=== PATIENT | female | born 1945 | race Caucasian/White ===

== ENCOUNTER 2016-09-12 19:42 | Emergency (ER) | payer MEDICARE ==
[2016-09-12] MEDS ORDERED: TORAdol 30 mg Injection IM ONE (20:27)
--- NOTE | 2016-09-12 20:34 | ERPHSYRPT ---
- History of Present Illness Time Seen by Provider: 09/12/16 20:15 Source: patient Exam Limitations: clinical condition Patient Subjective Stated Complaint: Pt sts right knee pain since last night. Denies new injury. Sts rt knee is swollen and painful with weight bearing. Sts aches. Triage Nursing Assessment: Pt alert, oriented, answers all questions appropriately. Skin p/w/d, resps non-labored. Pt ambulatory with steady gait however limp noted. Swelling noted rt knee. No redness. No bruising. Physician History: PATIENT WITH HISTORY OF ASTHMA AND HYPOTHYROIDISM COMPLAINS OF RIGHT KNEE PAIN WITH SWELLING SINCE LAST NIGHT. DENIES INJURY OR TRAUMA. HAS MARKED PAIN UPON WEIGHT BEARING. Method of Injury: unknown Occurred: yesterday Quality: constant Severity of Pain-Max: moderate Severity of Pain-Current: moderate Lower Extremities Pain: knee: right Modifying Factors: Improves With: movement Associated Symptoms: unable to bear weight Allergies/Adverse Reactions: Iodine and Iodide Containing Produc Allergy (Intermediate, Verified 09/12/16 20: 05) Rash aspartame Allergy (Verified 09/12/16 20:07) Home Medications: Cetirizine HCl [Zyrtec] 10 mg PO DAILY 09/12/16 [History] Hydrochlorothiazide 12.5 mg PO DAILY 09/12/16 [History] Levothyroxine Sodium 25 Mcg [Synthroid 25 Mcg] 25 mcg PO DAILY 09/12/16 [ History] Montelukast Sodium [Singulair] 10 mg PO DAILY 09/12/16 [History] Ropinirole HCl [Requip] 0 mg PO HS 09/12/16 [History] Solifenacin Succinate [Vesicare] 5 mg PO DAILY 09/12/16 [History] Immunizations Up to Date: Yes - Review of Systems Constitutional: No Fever, No Chills Ears, Nose, & Throat: No Symptoms Respiratory: No Cough, No Dyspnea Cardiac: No Chest Pain, No Edema, No Syncope Musculoskeletal: Joint Pain, Joint Swelling - Past Medical History Pertinent Past Medical History: Yes Endocrine Medical History: Hypothyroidism Other Medical History: restless leg syndrome, allergies - Past Surgical History Past Surgical History: Yes Other Surgical History: appendectomy - Social History Smoking Status: Current every day smoker How long have you smoked: 50 Exposure to second hand smoke: No Drug Use: none Patient Lives Alone: No - Nursing Vital Signs Nursing Vital Signs: Initial Vital Signs Temperature 97.7 F Temperature Source Oral Pulse Rate 84 Respiratory Rate 16 Blood Pressure [] 143/75 Pain Intensity 8 - Physical Exam General Appearance: alert Eyes, Ears, Nose, Throat Exam: moist mucous membranes Back Exam: normal inspection, No vertebral tenderness Knees Exam: right knee: joint effusion (MEDIAL FEMORAL CONDYLE SWELLING, NO JOINT LAXITY OR CREPITUS), soft tissue tenderness, swelling Foot Exam: bilateral foot: other (BILATERAL PEDIS PULSES 2+) Neuro/Tendon Exam: normal sensation, normal motor functions Mental Status Exam: alert, oriented x 3, cooperative Skin Exam: normal color, warm, dry SpO2: 98 Oxygen Delivery: Room Air - Radiology Exams Right Knee X-ray Interpretation: Reviewed by me, Negative, No Fracture (NO DISLOCATION) Ordered Tests: Active Orders 24 hr Category Date Time Status KNEE (3 VIEWS) Stat Exams 09/12/16 20:27 Taken Medication Summary Discontinued Medications Generic Name Dose Route Start Last Admin Trade Name Freq PRN Reason Stop Dose Admin Ketorolac Tromethamine 30 mg 09/12/16 20:27 09/12/16 20:38 Toradol 30 Mg Injection IM 09/12/16 20:28 30 mg STAT ONE Administration Ketorolac Tromethamine Confirm 09/12/16 20:37 Toradol 30 Mg Injection Administered 09/12/16 20:38 Dose 30 mg .ROUTE .STK-MED ONE - Progress Progress Note: 09/12/16 20:34 PATIENT GIVEN TORADOL 30MG IM Counseled pt/family regarding: diagnosis, need for follow-up, rad results - Departure Time of Disposition: 21:10 Departure Disposition: Home Clinical Impression: RIGHT KNEE PAIN Condition: Stable Critical Care Time: No Referrals: ABILIO RUIZ [Primary Care Provider] - Instructions: Knee Pain Additional Instructions: TYLENOL #3 EVERY 4 HOURS FOR PAIN. APPLY ICE OVER KNEE SWELLING EVERY 4 HOURS, 30 MINUTES FOR 48 HOURS. AMBULATED USING WALKER ASSISTANCE WITH RIGHT FOOT FOR 1 WEEK. CONSULT YOUR FAMILY PHYSICIAN FOR EVALUATION IN 1 WEEK. Prescriptions: Codeine Phosphate/APAP #3 [Tylenol #3 Tablet] 1 tab PO Q4H PRN PRN #15 tablet PRN Reason: Pain
[2016-09-12] MEDS ORDERED: TORAdol 30 mg Injection ONE (20:37)
[2016-09-12] MEDS ORDERED: Tylenol #3 Tablet PO ONE (21:07)
[2016-09-12] MEDS ORDERED: Tylenol #3 Tablet ONE (21:09)
[2016-09-12 21:16] VITALS: BP 140/70; PULSE 81; O2SAT 96
--- NOTE | 2016-09-13 09:20 | XRAY ---
Indication: Knee pain for 2 days. No known injury. Comparison: None 3 views of the right knee intact with small nonspecific suprapatellar effusion and minimal medial joint space narrowing. No other bony, articular, or soft tissue abnormalities.
== END 2016-09-12 21:15 | disposition home or self-care (01) ==
LOC: ED 19:42
DX: M25.561 Pain in right knee (principal)
CPT/HCPCS: 73562; 99283; J1885; A9270-GY

== ENCOUNTER 2022-09-06 13:23 | Emergency (ER) | payer MEDICARE ==
--- NOTE | 2022-09-06 13:32 | ERPHSYRPT ---
- History of Present Illness Time Seen by Provider: 09/06/22 13:31 Source: patient Exam Limitations: no limitations Physician History: This is a 77-year-old overweight white female patient who was brought to the emergency department by the ambulance service whose paramedics provided us with additional independent medical information on this patient. The patient is here today because of shortness of breath and weakness. The patient was recently diagnosed with flu type that was treated with Tamiflu. She completed Tamiflu on Monday prior to this evaluation. Patient's niece insisted on the patient being evaluated in the emergency department because the patient had significantly dry mouth and has not been eating and drinking well and the niece is concerned about dehydration. Patient denies chest pain. Patient denies abdominal pain. Patient has a history of hypothyroidism, seasonal allergies, COPD, and restless leg syndrome. Patient is a daily smoker of cigarettes. Timing/Duration: day(s) (Last several days) Activities at Onset: none Severity of Dyspnea-Max: mild Severity of Dyspnea-Current: mild Possible Cause: no prior episodes Modifying Factors: Improves With: rest Associated Symptoms: weakness, No cough, No chest pain/discomfort, No chills, No calf pain Allergies/Adverse Reactions: Iodine and Iodide Containing Produc Allergy (Intermediate, Verified 09/06/22 13:34) Rash aspartame Allergy (Verified 09/06/22 13:34) Home Medications: Cetirizine HCl [Zyrtec] 10 mg PO DAILY 09/12/16 [History] Levothyroxine Sodium 25 Mcg [Synthroid 25 Mcg] 25 mcg PO DAILY 09/12/16 [History] Montelukast Sodium [Singulair] 10 mg PO DAILY 09/12/16 [History] Ropinirole HCl [Requip] 0 mg PO HS 09/12/16 [History] Solifenacin Succinate [Vesicare] 5 mg PO DAILY 09/12/16 [History] hydroCHLOROthiazide [Hydrochlorothiazide] 12.5 mg PO DAILY 09/12/16 [History] Travel Risk - International Travel Have you traveled outside of the country in past 3 weeks: No - Coronavirus Screening Are you exhibiting any of the following symptoms?: Yes Symptoms: Shortness of Breath Close contact with a COVID-19 positive Pt in past 14-21 Days: No - Review of Systems Constitutional: Weakness Eyes: No Symptoms Ears, Nose, & Throat: Other (Dry mouth) Respiratory: Dyspnea (Mild) Cardiac: No Symptoms, No Chest Pain Abdominal/Gastrointestinal: Diarrhea, Appetite Changes, No Abdominal Pain, No Nausea, No Vomiting Genitourinary Symptoms: No Symptoms Musculoskeletal: No Symptoms Skin: No Symptoms Neurological: No Symptoms Psychological: No Symptoms Endocrine: No Symptoms Hematologic/Lymphatic: No Symptoms Immunological/Allergic: No Symptoms All Other Systems: Reviewed and Negative - Past Medical History Pertinent Past Medical History: Yes Neurological History: No Pertinent History Cardiac History: No Pertinent History Respiratory History: COPD Endocrine Medical History: Hypothyroidism Musculoskeletal History: Rheumatoid Arthritis Other Medical History: restless leg syndrome, allergies - Past Surgical History Past Surgical History: Yes Other Surgical History: appendectomy - Social History Smoking Status: Current every day smoker How long have you smoked: 50 Exposure to second hand smoke: No Drug Use: none Patient Lives Alone: No - Nursing Vital Signs Nursing Vital Signs: Initial Vital Signs Temperature 98.3 F 09/06/22 13:35 Pulse Rate 67 09/06/22 13:35 Respiratory Rate 18 09/06/22 13:35 Blood Pressure 132/90 09/06/22 13:35 O2 Sat by Pulse Oximetry 93 L 09/06/22 13:35 Pain Scale Pain Intensity 0 - Physical Exam General Appearance: no apparent distress, alert, anxiety, obese Eye Exam: PERRL/EOMI, eyes nml inspection Ears, Nose, Throat Exam: hearing grossly normal (Patient has a very dry mouth.) Neck Exam: normal inspection, non-tender, supple, full range of motion Respiratory Exam: normal breath sounds, lungs clear, airway intact, No chest tenderness, No respiratory distress Cardiovascular/Chest Exam: normal heart sounds, regular rate/rhythm Abdominal/Gastrointestinal Exam: soft, normal bowel sounds, No tenderness Rectal Exam: not done Extremity Exam: non-tender, normal range of motion, normal inspection Neurologic Exam: alert, oriented x 3, cooperative, cork tipper II-XII nml as tested, normal mood/affect, sensation nml Skin Exam: normal color, warm, dry Lymphatic Exam: No adenopathy SpO2 Interpretation: borderline oxygenation O2 Delivery: Room Air - Course Nursing assessment & vital signs reviewed: Yes Ordered Tests: Active Orders 24 hr Category Date Time Status EKG-ER Only STAT Care 09/06/22 13:32 Active IV Insertion STAT Care 09/06/22 13:32 Active CHEST 1 VIEW (PORTABLE) Stat Exams 09/06/22 13:32 Completed BLOOD CULTURE Stat Lab 09/06/22 13:50 Received CBC W DIFF Stat Lab 09/06/22 14:00 Completed CMP Stat Lab 09/06/22 13:50 Completed Lactic Acid Stat Lab 09/06/22 14:10 Completed Manual Differential NC Stat Lab 09/06/22 14:00 Completed NT PRO BNPII Stat Lab 09/06/22 13:50 Completed PROTIME WITH INR Stat Lab 09/06/22 13:50 Completed TROPONIN Q4H Lab 09/06/22 13:50 Completed TROPONIN Q4H Lab 09/06/22 17:45 Ordered TROPONIN Q4H Lab 09/06/22 21:45 Ordered Respiratory Therapy Assessment DAILY RT 09/06/22 14:02 Active Medication Summary Generic Name Dose Route Start Last Admin Trade Name Freq PRN Reason Stop Dose Admin Sodium Chloride 1,000 mls @ 100 mls/hr 09/06/22 14:00 09/06/22 14:15 Sodium Chloride 0.9% 1000 Ml IV 10/06/22 13:59 100 mls/hr .Q10H CARLA Administration Discontinued Medications Generic Name Dose Route Start Last Admin Trade Name Freq PRN Reason Stop Dose Admin Albuterol/Ipratropium Confirm 09/06/22 13:53 Ipratropium/Albuterol Sulfate 3 Ml Ampul.Neb Administered 09/06/22 13:54 Dose 3 ml IH .STK-MED ONE Albuterol/Ipratropium 3 ml 09/06/22 14:02 09/06/22 14:03 Ipratropium/Albuterol Sulfate 3 Ml Ampul.Neb IH 09/06/22 14:03 3 ml STAT ONE Administration Ceftriaxone Sodium/Dextrose 1 g in 50 mls @ 100 mls/hr 09/06/22 14:16 09/06/22 15:08 Rocephin 1 Gm-D5w 50 Ml Bag IV 09/06/22 14:45 Infused STAT STA Infusion Ceftriaxone Sodium/Dextrose Confirm 09/06/22 14:20 Rocephin 1 Gm-D5w 50 Ml Bag Administered 09/06/22 14:21 Dose 1 g in 50 mls @ ud IV .STK-MED ONE Sodium Chloride 500 mls @ 500 mls/hr 09/06/22 15:17 Sodium Chloride 0.9% 500 Ml IV 09/06/22 16:16 .Q1H ONE Potassium Chloride 10 meq 09/06/22 15:17 Potassium Chloride Tab 10 Meq Tab PO 09/06/22 15:18 STAT ONE Lab/Rad Data: Laboratory Result Diagrams 09/06/22 14:00 09/06/22 13:50 Laboratory Results 09/06/22 09/06/22 09/06/22 Range/Units 14:10 14:00 13:53 WBC 11.5 H (4.0-10.5) x10^3/uL RBC 3.25 L (4.1-5.4) x10^6/uL Hgb 10.2 L (12.0-16.0) g/dL Hct 30.9 L (35-47) % MCV 95.1 (78-100) fL MCH 31.4 (26-32) pg MCHC 33.0 (32-36) g/dL RDW 15.3 H (11.5-14.0) % Plt Count 446 (150-450) x10^3/uL MPV 9.5 (7.5-11.0) fL Segmented Neutrophils 66 (36.0-66.0) % Lymphocytes (Manual) 21 L (24-44) % Monocytes (Manual) 8 (0.0-12.0) % Eosinophils (Manual) 5 H (0.00-3.0) % Platelet Estimate NORMAL (NORMAL) RBC Morphology ABNORMAL Anisocytosis 1+ PT (9.4-12.5) SECONDS INR (0.8-3.0) Sodium (137-145) mmol/L Potassium (3.5-5.1) mmol/L Chloride (98-107) mmol/L Carbon Dioxide (22-30) mmol/L Anion Gap (5-15) MEQ/L BUN (7-17) mg/dL Creatinine (0.52-1.04) mg/dL Estimated GFR ML/MIN Glucose (74-106) mg/dL Lactic Acid 1.3 (0.4-2.0) Calcium (8.4-10.2) mg/dL Total Bilirubin (0.2-1.3) mg/dL AST (14-36) U/L ALT (0-35) U/L Alkaline Phosphatase (38-126) U/L Troponin I (0.000-0.034) ng/mL NT-Pro-B Natriuret Pep (<300) pg/mL Serum Total Protein (6.3-8.2) g/dL Albumin (3.5-5.0) g/dL Influenza Type A Ag NEGATIVE (NEGATIVE) Influenza Type B Ag NEGATIVE (NEGATIVE) RSV (PCR) NEGATIVE (NEGATIVE) SARS-CoV-2 (PCR) NEGATIVE (NEGATIVE) 09/06/22 09/06/22 09/06/22 Range/Units 13:50 13:50 13:50 WBC (4.0-10.5) x10^3/uL RBC (4.1-5.4) x10^6/uL Hgb (12.0-16.0) g/dL Hct (35-47) % MCV (78-100) fL MCH (26-32) pg MCHC (32-36) g/dL RDW (11.5-14.0) % Plt Count (150-450) x10^3/uL MPV (7.5-11.0) fL Segmented Neutrophils (36.0-66.0) % Lymphocytes (Manual) (24-44) % Monocytes (Manual) (0.0-12.0) % Eosinophils (Manual) (0.00-3.0) % Platelet Estimate (NORMAL) RBC Morphology Anisocytosis PT 12.3 (9.4-12.5) SECONDS INR 1.14 (0.8-3.0) Sodium (137-145) mmol/L Potassium (3.5-5.1) mmol/L Chloride (98-107) mmol/L Carbon Dioxide (22-30) mmol/L Anion Gap (5-15) MEQ/L BUN (7-17) mg/dL Creatinine (0.52-1.04) mg/dL Estimated GFR ML/MIN Glucose (74-106) mg/dL Lactic Acid (0.4-2.0) Calcium (8.4-10.2) mg/dL Total Bilirubin (0.2-1.3) mg/dL AST (14-36) U/L ALT (0-35) U/L Alkaline Phosphatase (38-126) U/L Troponin I < 0.012 (0.000-0.034) ng/mL NT-Pro-B Natriuret Pep 237 (<300) pg/mL Serum Total Protein (6.3-8.2) g/dL Albumin (3.5-5.0) g/dL Influenza Type A Ag (NEGATIVE) Influenza Type B Ag (NEGATIVE) RSV (PCR) (NEGATIVE) SARS-CoV-2 (PCR) (NEGATIVE) 09/06/22 Range/Units 13:50 WBC (4.0-10.5) x10^3/uL RBC (4.1-5.4) x10^6/uL Hgb (12.0-16.0) g/dL Hct (35-47) % MCV (78-100) fL MCH (26-32) pg MCHC (32-36) g/dL RDW (11.5-14.0) % Plt Count (150-450) x10^3/uL MPV (7.5-11.0) fL Segmented Neutrophils (36.0-66.0) % Lymphocytes (Manual) (24-44) % Monocytes (Manual) (0.0-12.0) % Eosinophils (Manual) (0.00-3.0) % Platelet Estimate (NORMAL) RBC Morphology Anisocytosis PT (9.4-12.5) SECONDS INR (0.8-3.0) Sodium 136 L (137-145) mmol/L Potassium 3.3 L (3.5-5.1) mmol/L Chloride 103 (98-107) mmol/L Carbon Dioxide 20 L (22-30) mmol/L Anion Gap 15.4 H (5-15) MEQ/L BUN 13 (7-17) mg/dL Creatinine 0.72 (0.52-1.04) mg/dL Estimated GFR > 60.0 ML/MIN Glucose 102 (74-106) mg/dL Lactic Acid (0.4-2.0) Calcium 8.0 L (8.4-10.2) mg/dL Total Bilirubin 0.60 (0.2-1.3) mg/dL AST 32 (14-36) U/L ALT 22 (0-35) U/L Alkaline Phosphatase 76 (38-126) U/L Troponin I (0.000-0.034) ng/mL NT-Pro-B Natriuret Pep (<300) pg/mL Serum Total Protein 6.8 (6.3-8.2) g/dL Albumin 3.2 L (3.5-5.0) g/dL Influenza Type A Ag (NEGATIVE) Influenza Type B Ag (NEGATIVE) RSV (PCR) (NEGATIVE) SARS-CoV-2 (PCR) (NEGATIVE) - Progress Progress: improved, re-examined Air Movement: good Progress Note: 09/06/22 14:16 Chest x-ray was interpreted by the radiologist and I reviewed the impression. There is a new minimal left base infiltrate versus atelectasis. 09/06/22 16:27 This patient's medical issue is 1 of moderate complexity. Level of complexity and the work-up performed is based on review of the patient's past medical history, review of the medication list, review of the patient drug allergy list, history of present illness and physical findings on examination. The work-up in this patient includes a twelve-lead EKG, troponin level, chest x-ray, CMP, CBC. I reviewed the above-stated work-up. The results show that the patient h as a minimal left base infiltrate versus atelectasis. I think she has a mild, early left base pneumonia. She has mild leukocytosis. We provided the patient with an intravenous line of normal saline solution as well as intravenous Rocephin. We will discharge her to home with a prescription of Levaquin oral antibiotic. Patient is to follow-up with her primary care provider for further evaluation management. Blood Culture(s) Obtained: Yes Antibiotics given: Yes Counseled pt/family regarding: lab results, diagnosis, need for follow-up, rad results Medical Desision Making - Independent Historian Additional History obtained from: Library Attendant/EMT - Diagnostic Testing Diagnostic test were ordered, analyzed, and reviewed by me: Yes Radiological Interpretation: Reviewed by me, Teleradiologist Report - Risk of complications The pt has a mod risk of morbidity or mortality based on: Need for prescription drug management - Departure Departure Disposition: Home Clinical Impression: Pneumonia Condition: Stable Critical Care Time: No Referrals: ABILIO HOGAN [Primary Care Provider] - Follow up/PCP as directed Additional Instructions: Drink plenty of clear liquids before advancing your diet. Take your antibiotics and other medication as prescribed. Give yourself the nebulizer treatments every 4 hours while awake for the next 48 to 72 hours. Return to the emergency department if symptoms worsen. Call your primary care provider tomorrow, 09/07/2022 to make arrangements for follow-up appointment within the next 3 days. Prescriptions: Levofloxacin [Levaquin 500 MG Tablet] 500 mg PO DAILY #7 tablet
[2022-09-06] MEDS ORDERED: DUONEB 0.5-3 MG/3 ml Neb IH ONE ×2 (13:53→14:02)
[2022-09-06 14:00] LABS: Hematocrit 30.9 % (35-47); Hemoglobin 10.2 g/dL (12.0-16.0); Mean Cell Volume 95.1 fL (78-100); Mean Corpuscular Hemoglobin 31.4 pg (26-32); Mean Platelet Volume 9.5 fL (7.5-11.0); Platelet Count 446 x10^3/uL (150-450); Red Blood Count 3.25 x10^6/uL (4.1-5.4); Red Cell Distribution Width 15.3 % (11.5-14.0); White Blood Count 11.5 x10^3/uL (4.0-10.5)
[2022-09-06] MEDS ORDERED: Sodium Chloride 0.9% 1000 ML 1,000 ML IV SCH (14:00)
--- NOTE | 2022-09-06 14:03 | XRAY ---
Indication: Short of breath. Comparison: May 31, 2017 Portable chest again hyperinflated with new minimal left base infiltrate versus atelectasis. Remaining heart and right lung unremarkable. Bony thorax intact again with osteopenia mild degenerative changes.
[2022-09-06 14:12] LABS: INR 1.14 (0.8-3.0); PROTIME 12.3 SECONDS (9.4-12.5)
[2022-09-06] MEDS ORDERED: Sodium Chloride 0.9% 1000 ML 1,000 ML ONE (14:13)
[2022-09-06] MEDS ORDERED: ROCEPHIN 1 Gm-D5w 50 ml Bag** 1 G/50 ML IVPB IV STA (14:16)
[2022-09-06] MEDS ORDERED: ROCEPHIN 1 Gm-D5w 50 ml Bag** 1 G/50 ML IVPB IV ONE (14:20)
[2022-09-06 14:24] LABS: ALBUMIN 3.2 g/dL (3.5-5.0); ALKALINE PHOSPHATASE 76 U/L (38-126); ANION GAP 15.4 MEQ/L (5-15); BLOOD UREA NITROGEN 13 mg/dL (7-17); CHLORIDE 103 mmol/L (98-107); Carbon Dioxide 20 mmol/L (22-30); Creatinine 1 0.72 mg/dL (0.52-1.04); EST GLOMERULAR FILTRATION RATE > 60.0 ML/MIN; Glucose 102 mg/dL (74-106); Potassium 3.3 mmol/L (3.5-5.1); SGOT/AST 32 U/L (14-36); SGPT/ALT 22 U/L (0-35); SODIUM 136 mmol/L (137-145); Total Protein 6.8 g/dL (6.3-8.2)
[2022-09-06 14:28] LABS: ANISOCYTOSIS 1+; Eosinophil 5 % (0.00-3.0); Lymphocytes 21 % (24-44); Monocyte 8 % (0.0-12.0); Neutrophils 66 % (36.0-66.0); Platelet Estimate NORMAL (NORMAL); Total Cells Counted 100
[2022-09-06 14:40] LABS: INFLUENZA A NEGATIVE (NEGATIVE); INFLUENZA B NEGATIVE (NEGATIVE); RESPIRATORY SYNCTIAL VIRUS NEGATIVE (NEGATIVE); SARS-CoV-2 Xpert Express NEGATIVE (NEGATIVE)
[2022-09-06] MEDS ORDERED: Klor Con PO ONE ×2 (15:17→16:35)
[2022-09-06] MEDS ORDERED: Sodium Chloride 0.9% 500 ML 500 ML IV ONE ×2 (15:17→16:35)
[2022-09-06 17:11] VITALS: BP 130/72; PULSE 72; O2SAT 96
== END 2022-09-06 17:12 | disposition home or self-care (01) ==
LOC: ED 13:23
DX: J18.9 Pneumonia, unspecified organism (principal); R06.02 Shortness of breath; R53.1 Weakness; J44.9 Chronic obstructive pulmonary disease, unspecified; Z79.899 Other long term (current) drug therapy; Z72.0 Tobacco use; Z20.828 Contact with and (suspected) exposure to other viral communicable diseases
CPT/HCPCS: 0241U; 36000; 36415; 71045; 80053; 83605; 83880; 84484; 85025; 85610; 87040; 93005; 94640; 96365; 99284; J0696; A9270-GY

== ENCOUNTER 2024-07-10 08:44 | Emergency (ER) | payer MEDICARE, OTHER ==
[2024-07-10 09:03] VITALS: TEMP 98.1
[2024-07-10 09:32] LABS: Absolute Neutrophil Ct (ANC) 15.24 x10^3/uL (1.56-6.13); BASOPHIL % 0.5 % (0.1-1.2); Basophil (Absolute #) 0.09 x10^3/uL (0.01-0.08); Eosinophil % 0.1 % (0.7-5.8); Eosinophil (Absolute #) 0.02 x10^3/uL (0.04-0.36); Hematocrit 37.5 % (34.1-44.9); Hemoglobin 12.3 g/dL (11.2-15.7); IMMATURE GRAN # 0.08 x10^3u/L (0.001-0.031); IMMATURE GRAN % 0.5 % (0.001-0.429); Lymphocyte (Absolute #) 0.83 x10^3/uL (1.18-3.74); Lymphocytes % 4.8 % (19.3-51.7); Mean Cell Volume 95.9 fL (79.4-94.8); Mean Corpuscular Hemoglobin 31.5 pg (25.6-32.2); Mean Corpuscular Hgb Concent. 32.8 g/dL (32.2-35.5); Mean Platelet Volume 10.2 fL (9.4-12.3); Monocyte (Absolute #) 1.19 x10^3/uL (0.24-0.86); Monocytes % 6.8 % (4.7-12.5); Neutrophil % 87.3 % (34.0-71.1); Platelet Count 222 x10^3/uL (182-369); Red Blood Count 3.91 x10^6/uL (3.93-5.22); Red Cell Distribution Width 14.7 % (11.7-14.4); White Blood Count 17.5 x10^3/uL (3.98-10.04)
--- NOTE | 2024-07-10 09:48 | XRAY ---
Indication: Chest pain. Comparison: September 06, 2022 Portable chest less inflated with new minimal bibasilar discoid atelectasis/scarring. Remaining heart and upper lungs unremarkable. Bony thorax intact again with osteopenia and mild degenerative changes. No acute findings.
[2024-07-10 09:55] LABS: ALBUMIN 4.3 g/dL (3.5-5.0); ANION GAP 14.7 MEQ/L (5-15); BILIRUBIN,TOTAL 0.5 mg/dL (0.2-1.3); Calcium 9.2 mg/dL (8.4-10.2); Creatinine 1 0.86 mg/dL (0.52-1.04); EST GLOMERULAR FILTRATION RATE 69.1 ML/MIN; Potassium 4.3 mmol/L (3.5-5.1); Total Protein 7.9 g/dL (6.3-8.2)
--- NOTE | 2024-07-10 11:12 | ERPHSYRPT ---
- History of Present Illness Historian: patient Exam Limitations: no limitations Patient Subjective Stated Complaint: Pt c/o of ursula chest pain with pain radiating to her arms, neck and back Triage Nursing Assessment: Pt brought to the ER by EMS, hypertensive, rates pain as 9/10, pulses normal, skin n/w/d, pain to ursula chest with palpatations, hx of COPD, doesn't appear to be in any distress Physician History: Patient has chest pain. She says it starts kind of in the midsternal area it goes down towards the epigastrium and then radiates bilaterally following diaphragm area. She says that movements and deep breaths make it worse. She says that she may be a little bit short of breath. She has not had any fever or chills. She does not have an extensive cardiac history.The pain has been going on for about a day. She says sometimes it goes away a little bit but for the most part it comes and goes and it is exacerbated by movement and deep breaths. The pain is described as tight and sharp at times. She is not acutely dyspneic but says she is getting A little bitshort of breath with exertion.She does not have any nausea vomiting fever chills or other systemic symptoms. She does not have any infectious symptomatology. Nitro Today/Relief: no nitro taken today Aspirin Treatment Today: no aspirin today Allergies/Adverse Reactions: Iodine and Iodide Containing Produc Allergy (Intermediate, Verified 07/10/24 09:03) Rash aspartame Allergy (Verified 07/10/24 09:03) Home Medications: Levothyroxine Sodium 25 Mcg [Synthroid 25 Mcg] 50 mcg PO DAILY 09/12/16 [History] Ropinirole HCl [Requip] 0.25 mg PO HS 09/12/16 [History] Solifenacin Succinate [Vesicare] 5 mg PO DAILY 09/12/16 [History] Adalimumab [Humira(Cf) Pen] 40 mg SQ WEEKLY 07/10/24 [History] Donepezil HCl 10 mg [Aricept 10 MG] 10 mg PO HS 07/10/24 [History] Fluticasone/Umeclidin/Vilanter [Trelegy Ellipta 100-62.5-25] 1 inh PO DAILY 07/10/24 [History] Meclizine HCl 25 mg [Antivert 25 mg] 25 mg PO BID 07/10/24 [History] Oxybutynin Chloride [Oxybutynin Chloride ER] 5 mg PO DAILY 07/10/24 [History] Rosuvastatin Calcium 10 mg PO DAILY 07/10/24 [History] Hx Influenza Vaccination/Date Given: Yes Hx Pneumococcal Vaccination/Date Given: Yes Travel Risk - International Travel Have you traveled outside of the country in past 3 weeks: No - Emerging Infectious Disease Are you exhibiting symptoms associated with any current EIDs: No - Review of Systems Constitutional: No Symptoms Eyes: No Symptoms Respiratory: No Symptoms Cardiac: Chest Pain Abdominal/Gastrointestinal: No Symptoms Genitourinary Symptoms: No Symptoms Skin: No Symptoms Neurological: No Symptoms All Other Systems: Reviewed and Negative - Past Medical History Pertinent Past Medical History: Yes Neurological History: No Pertinent History Cardiac History: No Pertinent History Respiratory History: COPD Endocrine Medical History: Hypothyroidism Musculoskeletal History: No Pertinent History Other Medical History: PSH: B CARPAL TUNNEL RELEASE, EXPLORATORY STOMACH SURGERY, CATARACT SURGERY - Past Surgical History Past Surgical History: Yes Other Surgical History: appendectomy - Social History Smoking Status: Current every day smoker How long have you smoked: 50 Exposure to second hand smoke: Yes Drug Use: none - Social Determinants of Health Will the patient participate in the screening: Yes Do you worry about a steady place to live?: No Do you have any problems with any of the following?: No known problems In the past 12 months,have you had to go without utilities?: No Transportation Issues: No Has anyone in your support network made you feel unsafe?: No Have you or anyone in your house had to go w/o enough food: No - Nursing Vital Signs Nursing Vital Signs: Initial Vital Signs Temperature 98.1 F 07/10/24 08:48 Pulse Rate 89 07/10/24 08:48 Blood Pressure 148/58 07/10/24 08:48 O2 Sat by Pulse Oximetry 98 07/10/24 08:48 Pain Scale Pain Intensity 9 - Physical Exam General Appearance: no apparent distress Eye Exam: PERRL/EOMI Neck Exam: normal inspection Respiratory Exam: normal breath sounds, chest tenderness, lungs clear, No respiratory distress Cardiovascular Exam: regular rate/rhythm, normal heart sounds, No normal peripheral pulses Gastrointestinal/Abdomen Exam: soft, normal bowel sounds Neurologic Exam: alert, oriented x 3 Skin Exam: normal color, warm, dry SpO2: 96 - Course EKG Interpreted by Me: RATE, NORMAL AXIS, NORMAL INTERVALS, NORMAL QRS, NORMAL ST-T Ordered Tests: Active Orders 24 hr Category Date Time Status EKG-ER Only STAT Care 07/10/24 09:06 Active CHEST 1 VIEW (PORTABLE) Stat Exams 07/10/24 09:06 Completed CHEST WITH CONTRAST [CT] Stat Exams 07/10/24 11:17 Completed CBC W DIFF Stat Lab 07/10/24 09:31 Completed CMP Stat Lab 07/10/24 09:31 Completed D-DIMER QUANTITATIVE Stat Lab 07/10/24 09:31 Completed TROPONIN Q4H Lab 07/10/24 09:31 Completed TROPONIN Q4H Lab 07/10/24 13:10 Completed TROPONIN Q4H Lab 07/10/24 17:15 Ordered Medication Summary Discontinued Medications Generic Name Dose Route Start Last Admin Trade Name Freq PRN Reason Stop Dose Admin Methylprednisolone Sodium 0 mg 07/10/24 12:15 07/10/24 12:25 Succinate 125 mg/ Sterile IV 07/10/24 12:16 125 mg Water 2 ml STAT ONE Administration Diphenhydramine HCl 50 mg 07/10/24 12:15 07/10/24 12:24 Diphenhydramine Hcl 50 Mg/Ml Vial IV 07/10/24 12:16 50 mg STAT ONE Administration Diphenhydramine HCl Confirm 07/10/24 12:21 Diphenhydramine Hcl 50 Mg/Ml Vial Administered 07/10/24 12:22 Dose 50 mg .ROUTE .STK-MED ONE Methylprednisolone Sodium Succinate Confirm 07/10/24 12:21 Methylprednis Sod Succ 125 Mg/2 Ml Vial Administered 07/10/24 12:22 Dose 125 mg .ROUTE .STK-MED ONE Sterile Water Confirm 07/10/24 12:21 Water For Injection,Sterile 10 Ml Vial Administered 07/10/24 12:22 Dose 10 ml IJ .STK-MED ONE Lab/Rad Data: Laboratory Result Diagrams 07/10/24 09:31 07/10/24 09:31 Laboratory Results 07/10/24 07/10/24 07/10/24 Range/Units 13:10 09:31 09:31 WBC (3.98-10.04) x10^3/uL RBC (3.93-5.22) x10^6/uL Hgb (11.2-15.7) g/dL Hct (34.1-44.9) % MCV (79.4-94.8) fL MCH (25.6-32.2) pg MCHC (32.2-35.5) g/dL RDW (11.7-14.4) % Plt Count (182-369) x10^3/uL MPV (9.4-12.3) fL Gran % (34.0-71.1) % Immature Gran % (Auto) (0.001-0.429) % Nucleat RBC Rel Count (0.00-0.2) % Eos # (Auto) (0.04-0.36) x10^3/uL Immature Gran # (Auto) (0.001-0.031) x10^3u/L Absolute Lymphs (auto) (1.18-3.74) x10^3/uL Absolute Monos (auto) (0.24-0.86) x10^3/uL Absolute Nucleated RBC (0.00-0.012) x10^3u/L Lymphocytes % (19.3-51.7) % Monocytes % (4.7-12.5) % Eosinophils % (0.7-5.8) % Basophils % (0.1-1.2) % Absolute Granulocytes (1.56-6.13) x10^3/uL Basophils # (0.01-0.08) x10^3/uL D-Dimer 0.81 H* (0.0-0.50) mg/L Sodium (135-145) mmol/L Potassium (3.5-5.1) mmol/L Chloride (98-107) mmol/L Carbon Dioxide (22-30) mmol/L Anion Gap (5-15) MEQ/L BUN (7-17) mg/dL Creatinine (0.52-1.04) mg/dL Estimated GFR ML/MIN Glucose (74-106) mg/dL Calcium (8.4-10.2) mg/dL Total Bilirubin (0.2-1.3) mg/dL AST (14-36) U/L ALT (0-35) U/L Alkaline Phosphatase (38-126) U/L Troponin I < 0.012 < 0.012 (0.000-0.033) ng/mL Serum Total Protein (6.3-8.2) g/dL Albumin (3.5-5.0) g/dL 07/10/24 07/10/24 Range/Units 09:31 09:31 WBC 17.5 H (3.98-10.04) x10^3/uL RBC 3.91 L (3.93-5.22) x10^6/uL Hgb 12.3 (11.2-15.7) g/dL Hct 37.5 (34.1-44.9) % MCV 95.9 H (79.4-94.8) fL MCH 31.5 (25.6-32.2) pg MCHC 32.8 (32.2-35.5) g/dL RDW 14.7 H (11.7-14.4) % Plt Count 222 (182-369) x10^3/uL MPV 10.2 (9.4-12.3) fL Gran % 87.3 H (34.0-71.1) % Immature Gran % (Auto) 0.5 H (0.001-0.429) % Nucleat RBC Rel Count 0.0 (0.00-0.2) % Eos # (Auto) 0.02 L (0.04-0.36) x10^3/uL Immature Gran # (Auto) 0.08 H (0.001-0.031) x10^3u/L Absolute Lymphs (auto) 0.83 L (1.18-3.74) x10^3/uL Absolute Monos (auto) 1.19 H (0.24-0.86) x10^3/uL Absolute Nucleated RBC 0.00 (0.00-0.012) x10^3u/L Lymphocytes % 4.8 L (19.3-51.7) % Monocytes % 6.8 (4.7-12.5) % Eosinophils % 0.1 L (0.7-5.8) % Basophils % 0.5 (0.1-1.2) % Absolute Granulocytes 15.24 H (1.56-6.13) x10^3/uL Basophils # 0.09 H (0.01-0.08) x10^3/uL D-Dimer (0.0-0.50) mg/L Sodium 139 (135-145) mmol/L Potassium 4.3 (3.5-5.1) mmol/L Chloride 106 (98-107) mmol/L Carbon Dioxide 23 (22-30) mmol/L Anion Gap 14.7 (5-15) MEQ/L BUN 24 H (7-17) mg/dL Creatinine 0.86 (0.52-1.04) mg/dL Estimated GFR 69.1 ML/MIN Glucose 139 H (74-106) mg/dL Calcium 9.2 (8.4-10.2) mg/dL Total Bilirubin 0.50 (0.2-1.3) mg/dL AST 33 (14-36) U/L ALT 19 (0-35) U/L Alkaline Phosphatase 103 (38-126) U/L Troponin I (0.000-0.033) ng/mL Serum Total Protein 7.9 (6.3-8.2) g/dL Albumin 4.3 (3.5-5.0) g/dL - Progress Progress: improved Air Movement: good Progress Note: The patient has chest pain it seems a musculoskeletal given her history. I am going to do a cardiac workup on her. Troponins were done and they were not elevated. Also a PE study was done on a CT. There was no CT abnormalities or other issues found. At this time I think is musculoskeletal chest pain. I do not think is cardiac and I do not think it is pulmonary embolism. 07/10/24 15:44 Medical Desision Making - Diagnostic Testing Diagnostic test were ordered, analyzed, and reviewed by me: Yes - Risk of complications Minimal Risk: Minimal risk of morbidity - Departure Departure Disposition: Home Clinical Impression: Chest wall pain Condition: Stable Critical Care Time: No Referrals: EBEN SHIRLEY DO [Primary Care Provider] - Follow up/PCP as directed Instructions: Chest Pain (DC)
[2024-07-10] MEDS ORDERED: solu-MEDROL ONE (12:21)
[2024-07-10] MEDS ORDERED: BENADRYL 50 MG/ML ONE (12:21)
[2024-07-10] MEDS ORDERED: Sterile H2O 10 ml IJ ONE (12:21)
[2024-07-10] MEDS: BENADRYL 50 MG/ML IV ONE (12:24)
[2024-07-10] MEDS: solu-MEDROL 125 MG, Sterile H2O 10 ml 2 ML IV ONE (12:25)
[2024-07-10 15:12] VITALS: PULSE 89
--- NOTE | 2024-07-10 15:21 | XRAY ---
Indication: Chest pain. Multiple contiguous axial images obtained through the chest using 80 cc Isovue 370 contrast and using PE protocol. Comparison: CT chest without contrast May 01, 2024. Adequate opacification pulmonary arteries. However respiration artifact limits evaluation of the more distal lobar and segmental branches. No obvious central pulmonary embolus. Heart not enlarged. Aorta again minimally atherosclerotic without aneurysm/dissection. Stable small mediastinal and right hilar calcified nodes. No pathologic mediastinal/hilar lymphadenopathy. Lungs again demonstrates diffuse centrilobular pulmonary emphysema, sub-centimeter right upper/right lower lobe nodules, right apical calcified pleural plaquing, and bibasilar fibrosis/scarring. No infiltrate or effusion. Bony thorax intact again with osteopenia and minimal degenerative changes throughout spine. Limited upper abdomen unremarkable. Impression: 1. Pulmonary embolus evaluation limited by respiration. No obvious central pulmonary embolus. 2. Again pulmonary emphysema, indeterminant subcentimeter right upper/right lower lobe nodules, pulmonary fibrosis/scarring, right apical calcified pleural plaquing, arteriosclerotic disease, chronic bony findings, and old granulomatous disease.
[2024-07-10 15:46] VITALS: O2SAT 96
[2024-07-10 15:52] VITALS: BP 135/67; RESP 24
== END 2024-07-10 15:56 | disposition home or self-care (01) ==
LOC: ED 08:44
DX: R07.89 Other chest pain (principal); Z79.899 Other long term (current) drug therapy; Z72.0 Tobacco use
CPT/HCPCS: 36415; 71045; 71260; 80053; 84484; 85025; 85379; 93005; 96374; 96375; 99284; 99285; J1200; J2919